=== PATIENT | female | born 1970 | race Caucasian/White ===

== ENCOUNTER 2016-04-28 18:55 | Emergency (ER) | payer OTHER ==
[2016-04-28 19:10] VITALS: BP 161/100; PULSE 119; TEMP 98.1; BMI 29.2
--- NOTE | 2016-04-28 20:18 | PDOC ---
History of Present Illness - General Chief Complaint: Pain, Acute Stated Complaint: HEADACHE/BACK PAIN Time Seen by Provider: 04/28/16 20:05 History Source: Patient, Old Records Exam Limitations: No Limitations - History of Present Illness Initial Comments: 04/28/16 20:12 45 Y F HX crhonic pain pte c/o 2 day hx of lt sided low back pain radiated to lt lef. has not called her pcp. sts she is allergic to pretty much everything but narcotics. in ed in [place]. sts symptoms have improved. no incontinence or weakness. Past History - Past Medical History Allergies/Adverse Reactions: Allergies Allergy/AdvReac Type Severity Reaction Status Date / Time levofloxacin [From Levaquin] Allergy Severe Swelling Verified 04/28/16 18:57 metaxalone [From Skelaxin] Allergy Severe Swelling Verified 04/28/16 18:57 metoclopramide HCl Allergy Severe Hives Verified 04/28/16 18:57 [From Reglan] Penicillins Allergy Severe Hives Verified 04/28/16 18:57 phenytoin sodium Allergy Severe Rash Verified 04/28/16 18:57 [From Dilantin] phenytoin sodium extended Allergy Severe Rash Verified 04/28/16 18:57 [From Dilantin] ciprofloxacin Allergy Intermediate Itching Verified 04/28/16 18:57 venlafaxine HCl Allergy Mild Rash Verified 04/28/16 18:57 [From Effexor] ketorolac tromethamine Allergy Hives Verified 04/28/16 18:57 [From Toradol] olanzapine [From Zyprexa] Allergy Verified 04/28/16 18:57 sumatriptan [From Imitrex] Allergy Hives Verified 04/28/16 18:57 sumatriptan succinate Allergy Hives Verified 04/28/16 18:57 [From Imitrex] tramadol Allergy ITCHING Verified 04/28/16 18:57 SHAKING Home Medications: Ambulatory Orders Atenolol [Tenormin -] 25 mg PO BID 02/25/15 Divalproex [Depakote -] 500 mg PO TID 02/25/15 Gabapentin [Neurontin] 600 mg PO TID 02/25/15 Diazepam [Valium -] 5 mg PO TID 03/27/15 Docusate Sodium [Colace -] 100 mg PO TID 03/27/15 Hydromorphone [Dilaudid -] 4 mg PO Q4H PRN 03/27/15 Zolpidem Tartrate [Ambien Cr] 12.5 mg PO PRN PRN 07/03/15 Anemia: No Asthma: No Cancer: No Cardiac Disorders: No CVA: No COPD: No CHF: No Dementia: No Diabetes: No GI Disorders: Yes (colitis, PANCREATITIS.) Disorders: Yes (PAST H/O INC OF URINE HAD A BLADDER LIFT) HTN: Yes Hypercholesterolemia: No Liver Disease: No Psychiatric Problems: Yes (anxiety, panic disorder) Suicide Attempt (Hx): No Seizures: Yes (BRAIN ANEURYSM, INSOMNIA, PTSD) Thyroid Disease: Yes (HYPOTHYROIDISM) - Surgical History Abdominal Surgery: Yes (HYSTERECTOMY BUT HAS BOTH OVARIES) Appendectomy: Yes Cardiac Surgery: No Cholecystectomy: Yes GI Surgery: No Lung Surgery: No Neurologic Surgery: Yes (ANEURYSM CLIP) Orthopedic Surgery: (left knee sx from cysts torn) - Immunization History Td Vaccination: Yes TDAP Vaccination: Yes Immunization Up to Date: Yes - Psycho/Social/Smoking Cessation Hx Anxiety: Yes Suicidal Ideation: No Smoking Status: No Smoking History: Never smoked Years of Tobacco Use: 0 Have you smoked in the past 12 months: No Number of Cigarettes Smoked Daily: 0 Cigars Per Day: 0 Information on smoking cessation initiated: No 'Breaking Loose' booklet given: 02/27/14 Hx Alcohol Use: No Drug/Substance Use Hx: No Substance Use Type: None Hx Substance Use Treatment: No Trauma Specific PMHX - Complaint Specific PMHX Arthritis: Yes Back Injury: No Neck Injury: Yes Hx Sacro Iliac Joint Dysfunction: No Review of Systems - Review of Systems Able to Perform ROS?: Yes Is the patient limited Cape Verdean proficient: No Constitutional: No: Symptoms Reported HEENTM: No: Symptoms Reported Respiratory: No: Symptoms reported Cardiac (ROS): No: Symptoms Reported ABD/GI: No: Symptoms Reported Musculoskeletal: Yes: Symptoms Reported, See HPI, Back Pain Integumentary: No: Symptoms Reported Neurological: Yes: Symptoms reported, See HPI, Tingling, Weakness All Other Systems: Reviewed and Negative *Physical Exam - Vital Signs Last Vital Signs Temp Pulse Resp BP Pulse Ox 98.1 F 119 H 18 161/100 100 04/28/16 18:59 04/28/16 18:59 04/28/16 18:59 04/28/16 18:59 04/28/16 18:59 - Physical Exam General Appearance: Yes: Nourished, Appropriately Dressed. No: Apparent Distress HEENT: positive: Normal ENT Inspection Neck: positive: Supple. negative: Tender Respiratory/Chest: positive: Lungs Clear. negative: Respiratory Distress Cardiovascular: positive: Regular Rhythm, Regular Rate, Tachycardia Gastrointestinal/Abdominal: positive: Soft. negative: Tender Musculoskeletal: positive: Normal Inspection, Other (lt SIJ tenderness). negative: Vertebral Tenderness Extremity: positive: Normal Capillary Refill, Normal Inspection, Normal Range of Motion, Other (strength 5/5 x4) Neurologic: positive: transport nurse II-XII NML intact, Fully Oriented, Alert, Normal Mood/ Affect, Normal Response, Motor Strength 5/5. negative: Sensory Deficit *DC/Admit/Observation/Transfer Diagnosis at time of Disposition: Lumbar radiculopathy - Discharge Dispostion Disposition: HOME Condition at time of disposition: Stable - Referrals Referrals: Rayna Lundy MD [Primary Care Provider] - Call tomorrow - Patient Instructions Additional Instructions: TAKE MEDICATIONS PRESCRIBED TYLENOL, 1 GM 4 TIMES A DAY FLEXERIL, 10 MG 3 TIMES A DAY AVOID PROLONG PERIODS OF TIME IN SAME POSITION DO NOT LIFT WEIGHTS ICE OR HEAT TO AREA (WHATEVER WORKS BETTER FOR YOU) CALL YOUR DOCTOR TO START PHYSICAL THERAPY QASIM LAY DOWN ON EITHER SIDE, KNEES BENT, STRAIGHT SPINE, CUSHION BETWEEN YoUR KNEES RETURN IF WORSENING PAIN OR NEW SYMPTOMS LIKE INABILITY TO URINATE OR HOLD YOUR URINE
== END 2016-04-28 20:32 | disposition home or self-care (01) ==
LOC: JER 18:55
DX: M54.16 Radiculopathy, lumbar region (principal); I10 Essential (primary) hypertension; E03.9 Hypothyroidism, unspecified; F41.0 Panic disorder [episodic paroxysmal anxiety]; F43.10 Post-traumatic stress disorder, unspecified; G47.09 Other insomnia; Z86.69 Personal history of other diseases of the nervous system and sense organs; Z87.19 Personal history of other diseases of the digestive system
CPT/HCPCS: 99283-25

== ENCOUNTER 2016-06-02 18:33 | Emergency (ER) | payer OTHER ==
--- NOTE | 2016-06-02 18:52 | PDOC ---
Rapid Medical Evaluation Chief Complaint: Injury Medical Evaluation: Allergies Allergy/AdvReac Type Severity Reaction Status Date / Time levofloxacin [From Levaquin] Allergy Severe Swelling Verified 06/02/16 18:51 metaxalone [From Skelaxin] Allergy Severe Swelling Verified 06/02/16 18:51 metoclopramide HCl Allergy Severe Hives Verified 06/02/16 18:51 [From Reglan] Penicillins Allergy Severe Hives Verified 06/02/16 18:51 phenytoin sodium Allergy Severe Rash Verified 06/02/16 18:51 [From Dilantin] phenytoin sodium extended Allergy Severe Rash Verified 06/02/16 18:51 [From Dilantin] ciprofloxacin Allergy Intermediate Itching Verified 06/02/16 18:51 venlafaxine HCl Allergy Mild Rash Verified 06/02/16 18:51 [From Effexor] ketorolac tromethamine Allergy Hives Verified 06/02/16 18:51 [From Toradol] olanzapine [From Zyprexa] Allergy Verified 06/02/16 18:51 sumatriptan [From Imitrex] Allergy Hives Verified 06/02/16 18:51 sumatriptan succinate Allergy Hives Verified 06/02/16 18:51 [From Imitrex] tramadol Allergy ITCHING Verified 06/02/16 18:51 SHAKING 06/02/16 18:51 45 yo F presents to the ER c/o TROY, back pain after a slip and fall. Pt reports she hit her head on the floor at 1500hrs today.
[2016-06-02 18:56] VITALS: BP 147/86; PULSE 83; TEMP 98; BMI 29.5
--- NOTE | 2016-06-02 20:52 | PDOC ---
History of Present Illness - General Chief Complaint: Injury Stated Complaint: FALL/BACK PAIN/RT SIDE FACE INJURY Time Seen by Provider: 06/02/16 19:50 History Source: Patient Exam Limitations: No Limitations - History of Present Illness Initial Comments: 06/02/16 20:47 45yo Female patient with PmHx: Anxiety, Fibromyalgia, GERD, HTN, Hysterectomy, Neck and back surgery, Brain Aneurysm, and current on pain management getting 4mg Dilaudid every 6 hours, presents to ED c/o fall w/ head injury and +LOC. Patient states while changing her shower curtains, she did not know the tub was wet, she slipped- fell and hit her head. Patient reports + LOC. "My son found me." Patient was reportedly dropped off to ED by her . She also c/o Rt shoulder pain, neck pain, and lower back pain with associated dizziness. Denies any other complaints at this time. Occurred: reports: just prior to arrival Severity: reports: moderate Pain Location: reports: back, head, neck, upper extremity Method of Injury: Yes: fall Modifying Factors: improves with: pain medication Loss of Consciousness: unsure Associated Symptoms (Fall): dizziness Past History - Travel Traveled outside of the country in the last 30 days: No Close contact w/someone who was outside of country & ill: No - Past Medical History Allergies/Adverse Reactions: Allergies Allergy/AdvReac Type Severity Reaction Status Date / Time levofloxacin [From Levaquin] Allergy Severe Swelling Verified 06/02/16 18:51 metaxalone [From Skelaxin] Allergy Severe Swelling Verified 06/02/16 18:51 metoclopramide HCl Allergy Severe Hives Verified 06/02/16 18:51 [From Reglan] Penicillins Allergy Severe Hives Verified 06/02/16 18:51 phenytoin sodium Allergy Severe Rash Verified 06/02/16 18:51 [From Dilantin] phenytoin sodium extended Allergy Severe Rash Verified 06/02/16 18:51 [From Dilantin] ciprofloxacin Allergy Intermediate Itching Verified 06/02/16 18:51 venlafaxine HCl Allergy Mild Rash Verified 06/02/16 18:51 [From Effexor] ketorolac tromethamine Allergy Hives Verified 06/02/16 18:51 [From Toradol] olanzapine [From Zyprexa] Allergy Verified 06/02/16 18:51 sumatriptan [From Imitrex] Allergy Hives Verified 06/02/16 18:51 sumatriptan succinate Allergy Hives Verified 06/02/16 18:51 [From Imitrex] tramadol Allergy ITCHING Verified 06/02/16 18:51 SHAKING Home Medications: Ambulatory Orders Atenolol [Tenormin -] 25 mg PO BID 02/25/15 Divalproex [Depakote -] 500 mg PO TID 02/25/15 Gabapentin [Neurontin] 600 mg PO TID 02/25/15 Diazepam [Valium -] 5 mg PO TID 03/27/15 Docusate Sodium [Colace -] 100 mg PO TID 03/27/15 Hydromorphone [Dilaudid -] 4 mg PO Q4H PRN 03/27/15 Zolpidem Tartrate [Ambien Cr] 12.5 mg PO PRN PRN 07/03/15 Cyclobenzaprine HCl [Flexeril -] 10 mg PO TID #10 tablet 04/28/16 Methocarbamol [Robaxin -] 500 mg PO TID PRN #21 tablet 06/03/16 Anemia: No Asthma: No Cancer: No Cardiac Disorders: No CVA: No COPD: No CHF: No Dementia: No Diabetes: No GI Disorders: Yes (colitis, PANCREATITIS.) Disorders: Yes (PAST H/O INC OF URINE HAD A BLADDER LIFT) HTN: Yes Hypercholesterolemia: No Liver Disease: No Psychiatric Problems: Yes (anxiety, panic disorder) Suicide Attempt (Hx): No Seizures: Yes (BRAIN ANEURYSM, INSOMNIA, PTSD) Thyroid Disease: Yes (HYPOTHYROIDISM) - Surgical History Abdominal Surgery: Yes (HYSTERECTOMY BUT HAS BOTH OVARIES) Appendectomy: Yes Cardiac Surgery: No Cholecystectomy: Yes GI Surgery: No Lung Surgery: No Neurologic Surgery: Yes (ANEURYSM CLIP) Orthopedic Surgery: (left knee sx from cysts torn) - Immunization History Td Vaccination: Yes TDAP Vaccination: Yes Immunization Up to Date: Yes - Psycho/Social/Smoking Cessation Hx Anxiety: Yes Suicidal Ideation: No Smoking Status: No Smoking History: Never smoked Years of Tobacco Use: 0 Have you smoked in the past 12 months: No Number of Cigarettes Smoked Daily: 0 Cigars Per Day: 0 Information on smoking cessation initiated: No 'Breaking Loose' booklet given: 11/24/14 Hx Alcohol Use: No Drug/Substance Use Hx: No Substance Use Type: None Hx Substance Use Treatment: No Trauma Specific PMHX - Complaint Specific PMHX Arthritis: Yes Back Injury: No Neck Injury: Yes Hx Sacro Iliac Joint Dysfunction: No Review of Systems - Review of Systems Able to Perform ROS?: Yes Is the patient limited Armenian proficient: No Musculoskeletal: Yes: Back Pain, Joint Pain, Neck Pain, Other (Head Injury) All Other Systems: Reviewed and Negative *Physical Exam - Vital Signs Last Vital Signs Temp Pulse Resp BP Pulse Ox 98.0 F 83 18 147/86 100 06/02/16 18:51 06/02/16 18:51 06/02/16 18:51 06/02/16 18:51 06/02/16 18:51 - Physical Exam General Appearance: Yes: Nourished, Appropriately Dressed, Mild Distress. No: Apparent Distress, Moderate Distress, Severe Distress HEENT: positive: EOMI, SHELLIE, Normal ENT Inspection, Normal Voice, Symmetrical, TMs Normal, Pharynx Normal. negative: Pharyngeal Erythema, Tonsillar Exudate, Tonsillar Erythema, Nasal Congestion, Rhinorrhea Neck: positive: Trachea midline, Supple. negative: Tender, Normal Thyroid, Rigid, Decreased range of motion, Stridor, Lymphadenopathy (R), Lymphadenopathy (L) Respiratory/Chest: positive: Lungs Clear, Normal Breath Sounds. negative: Chest Tender, Respiratory Distress, Accessory Muscle Use, Labored Respiration, Rapid RR, Rhonchi, Stridor, Wheezing Cardiovascular: positive: Regular Rhythm, Regular Rate. negative: Edema, JVD, Murmur Gastrointestinal/Abdominal: positive: Normal Bowel Sounds, Soft, Distended. negative: Guarding, Rebound, Tenderness Musculoskeletal: positive: Normal Inspection, Vertebral Tenderness (Right lateral cervical spine tenderness.). negative: CVA Tenderness, Muscle Spasm Extremity: positive: Normal Capillary Refill, Normal Inspection, Normal Range of Motion Integumentary: positive: Normal Color, Dry, Warm. negative: Rash, Swelling Neurologic: positive: machine lacer II-XII NML intact, Fully Oriented, Alert, Normal Mood/ Affect, Normal Response, Motor Strength 5/5 ED Treatment Course - RADIOLOGY Radiology Studies Ordered: Category Date Time Status CERVICAL SPINE CT W/O CONTR [CT] Stat CT Scan 06/02/16 20:[address] WITHOUT CONTRAST [CT] Stat CT Scan 06/02/16 20:18 Ordered SHOULDER-RIGHT [RAD] Stat Radiology 06/02/16 20:18 Ordered SPINE-LUMBAR SACRAL [RAD] Stat Radiology 06/02/16 20:18 Ordered *DC/Admit/Observation/Transfer Diagnosis at time of Disposition: Musculoskeletal pain - Discharge Dispostion Disposition: HOME Condition at time of disposition: Improved Admit: No - Prescriptions Prescriptions: Methocarbamol [Robaxin -] 500 mg PO TID PRN #21 tablet PRN Reason: MUSCULOSKELETAL PAIN - Patient Instructions Printed Discharge Instructions: DI for Musculoskeletal Pain, DI for Closed Head Injury Additional Instructions: FOLLOW UP WITH YOUR PRIMARY CARE PROVIDER THIS WEEK. CALL TO SCHEDULE APPOINTMENT. CONTINUE YOUR CURRENT PAIN MEDICATIONS PER PAIN MANAGEMENT. TAKE MEDICATIONS PRESCRIBED. I HAVE ADDED A MUSCLE RELAXER TO HELP WITH YOUR PAIN. Print Language: PAKISTANI
[2016-06-02] MEDS ORDERED: HYDROmorphone HCL 2 MG TABLET PO ONE (23:17)
[2016-06-02] MEDS ORDERED: HYDROmorphone HCL 2 MG TABLET ONE (23:25)
== END 2016-06-03 00:48 | disposition home or self-care (01) ==
LOC: JER 18:33
DX: S09.8XXA Other specified injuries of head, initial encounter (principal); S49.91XA Unspecified injury of right shoulder and upper arm, initial encounter; W18.2XXA Fall in (into) shower or empty bathtub, initial encounter; Y93.E9 Activity, other interior property and clothing maintenance; Y92.031 Bathroom in apartment as the place of occurrence of the external cause; Y99.8 Other external cause status; I10 Essential (primary) hypertension; M79.7 Fibromyalgia; F41.9 Anxiety disorder, unspecified; K21.9 Gastro-esophageal reflux disease without esophagitis
CPT/HCPCS: 70450-TC; 72100-TC; 72125-TC; 73030-TC-RT; 99283-25

== ENCOUNTER 2016-10-02 20:38 | Emergency (ER) | payer OTHER ==
[2016-10-02 20:53] VITALS: BP 151/128; PULSE 110; TEMP 98.3
--- NOTE | 2016-10-02 22:22 | PDOC ---
History of Present Illness - General Chief Complaint: Pain, Acute Stated Complaint: LEFT LEG PAIN/ PAIN Time Seen by Provider: 10/02/16 21:00 History Source: Patient - History of Present Illness Initial Comments: 10/03/16 01:07 45-year-old female presents to the emergency department complaining of pain to the back of her left knee 2 weeks. Patient states she was seen by her orthopedic surgeon who informed her that she did not have any pain behind her knee. Patient denies any headache, dizziness, lightheadedness, chest pain, shortness of breath, abdominal pains, extremity numbness or tingling sensation, extremity swelling or pain anywhere else besides the back of her left knee. Past History - Past Medical History Allergies/Adverse Reactions: Allergies Allergy/AdvReac Type Severity Reaction Status Date / Time levofloxacin [From Levaquin] Allergy Severe Swelling Verified 10/02/16 20:48 metaxalone [From Skelaxin] Allergy Severe Swelling Verified 10/02/16 20:48 metoclopramide HCl Allergy Severe Hives Verified 10/02/16 20:48 [From Reglan] Penicillins Allergy Severe Hives Verified 10/02/16 20:48 phenytoin sodium Allergy Severe Rash Verified 10/02/16 20:48 [From Dilantin] phenytoin sodium extended Allergy Severe Rash Verified 10/02/16 20:48 [From Dilantin] ciprofloxacin Allergy Intermediate Itching Verified 10/02/16 20:48 venlafaxine HCl Allergy Mild Rash Verified 10/02/16 20:48 [From Effexor] ketorolac tromethamine Allergy Hives Verified 10/02/16 20:48 [From Toradol] olanzapine [From Zyprexa] Allergy Verified 10/02/16 20:48 sumatriptan [From Imitrex] Allergy Hives Verified 10/02/16 20:48 sumatriptan succinate Allergy Hives Verified 10/02/16 20:48 [From Imitrex] tramadol Allergy ITCHING Verified 10/02/16 20:48 SHAKING Home Medications: Ambulatory Orders Atenolol [Tenormin -] 25 mg PO BID 02/25/15 Divalproex [Depakote -] 500 mg PO TID 02/25/15 Gabapentin [Neurontin] 600 mg PO TID 02/25/15 Diazepam [Valium -] 5 mg PO TID 03/27/15 Docusate Sodium [Colace -] 100 mg PO TID 03/27/15 Hydromorphone [Dilaudid -] 4 mg PO Q4H PRN 03/27/15 Zolpidem Tartrate [Ambien Cr] 12.5 mg PO PRN PRN 07/03/15 Cyclobenzaprine HCl [Flexeril -] 10 mg PO TID #10 tablet 04/28/16 Methocarbamol [Robaxin -] 500 mg PO TID PRN #21 tablet 06/03/16 Anemia: No Asthma: No Cancer: No Cardiac Disorders: No CVA: No COPD: No CHF: No Dementia: No Diabetes: No GI Disorders: Yes (colitis, PANCREATITIS.) Disorders: Yes (PAST H/O INC OF URINE HAD A BLADDER LIFT) HTN: Yes Hypercholesterolemia: No Liver Disease: No Psychiatric Problems: Yes (anxiety, panic disorder) Suicide Attempt (Hx): No Seizures: Yes (BRAIN ANEURYSM, INSOMNIA, PTSD) Thyroid Disease: Yes (HYPOTHYROIDISM) - Surgical History Abdominal Surgery: Yes (HYSTERECTOMY BUT HAS BOTH OVARIES) Appendectomy: Yes Cardiac Surgery: No Cholecystectomy: Yes GI Surgery: No Lung Surgery: No Neurologic Surgery: Yes (ANEURYSM CLIP) Orthopedic Surgery: (left knee sx from cysts torn) - Immunization History Td Vaccination: Yes TDAP Vaccination: Yes Immunization Up to Date: Yes - Psycho/Social/Smoking Cessation Hx Anxiety: Yes Suicidal Ideation: No Smoking Status: No Smoking History: Never smoked Years of Tobacco Use: 0 Have you smoked in the past 12 months: No Number of Cigarettes Smoked Daily: 0 Cigars Per Day: 0 Information on smoking cessation initiated: No 'Breaking Loose' booklet given: 02/27/14 Hx Alcohol Use: No Drug/Substance Use Hx: No Substance Use Type: None Hx Substance Use Treatment: No Review of Systems - Review of Systems Able to Perform ROS?: Yes Comments:: 10/03/16 01:08 CONSTITUTIONAL: Absent: fever, chills, diaphoresis, generalized weakness, malaise, loss of appetite HEENT: Absent: rhinorrhea, nasal congestion, throat pain, throat swelling, difficulty swallowing, mouth swelling, ear pain, eye pain, visual Changes CARDIOVASCULAR: Absent: chest pain, loss of consciousness, palpitations, irregular heart rate, peripheral edema RESPIRATORY: Absent: cough, shortness of breath, dyspnea with exertion, orthopnea, wheezing, stridor, hemoptysis GASTROINTESTINAL: Absent: abdominal pain, abdominal distension, nausea, vomiting, diarrhea, constipation, melena, hematochezia GENITOURINARY: Absent: dysuria, frequency, urgency, hesitancy, hematuria, flank pain, genital pain MUSCULOSKELETAL: +pain to posterior left knee Absent: myalgia, arthralgia, joint swelling SKIN: Absent: rash, itching, pallor HEMATOLOGIC/IMMUNOLOGIC: Absent: easy bleeding, easy bruising, lymphadenopathy, frequent infections ENDOCRINE: Absent: unexplained weight gain, unexplained weight loss, heat intolerance, cold intolerance NEUROLOGIC: Absent: headache, focal weakness or paresthesias, dizziness, unsteady gait, seizure, mental status changes, bladder or bowel incontinence PSYCHIATRIC: Absent: anxiety, depression, suicidal or homicidal ideation, hallucinations. Is the patient limited Taiwanese proficient: No *Physical Exam - Vital Signs Last Vital Signs Temp Pulse Resp BP Pulse Ox 98.3 F 110 H 16 151/128 97 10/02/16 20:49 10/02/16 20:49 10/02/16 20:49 10/02/16 20:49 10/02/16 20:49 - Physical Exam Comments: 10/03/16 01:08 GENERAL: Well developed, well nourished. Awake and alert. No acute distress. HEENT: Normocephalic, atraumatic. PERRLA, EOMI. No conjunctival pallor. Sclera are non- icteric. Moist mucous membranes. Oropharynx is clear. NECK: Supple. Full ROM. No JVD. Carotid pulses 2+ and symmetric, without bruits. No thyromegaly. No lymphadenopathy. CARDIOVASCULAR: Regular rate and rhythm. No murmurs, rubs, or gallops. Distal pulses are 2+ and symmetric. PULMONARY: No evidence of respiratory distress. Lungs clear to auscultation bilaterally. No wheezing, rales or rhonchi. ABDOMINAL: Soft. Non-tender. Non-distended. No rebound or guarding. No organomegaly. Normoactive bowel sounds. MUSCULOSKELETAL Normal range of motion at all joints. No bony deformities or tenderness. No CVA tenderness. EXTREMITIES: No cyanosis. No clubbing. No edema. No calf tenderness. SKIN: Warm and dry. Normal capillary refill. No rashes. No jaundice. NEUROLOGICAL: Alert, awake, appropriate. Cranial nerves 2-12 intact. No deficits to light touch and temperature in face, upper extremities and lower extremities. No motor deficits in the in face, upper extremities and lower extremities. Normoreflexic in the upper and lower extremities. Normal speech. Toes are down- going bilaterally. Gait is normal without ataxia. PSYCHIATRIC: Cooperative. Good eye contact. Appropriate mood and affect. *DC/Admit/Observation/Transfer Diagnosis at time of Disposition: Bakers cyst Qualifiers: Laterality: left Qualified Code(s): M71.22 - Synovial cyst of popliteal space [ Mckenzie], left knee - Discharge Dispostion Disposition: HOME Condition at time of disposition: Stable Admit: No - Referrals Referrals: Rayna Lundy MD [Primary Care Provider] - - Patient Instructions Printed Discharge Instructions: Bakers Cyst Additional Instructions: Return to the ER for severe/persistent/worsening symptoms Progress Note - Progress Note Progress Note: No evidence for DVT left lower extremity. 2.8 x 2.5 x 1.2 cm complex popliteal cyst
--- NOTE | 2016-10-02 23:13 | PDOC ---
*Physical Exam - Vital Signs Last Vital Signs Temp Pulse Resp BP Pulse Ox 98.3 F 110 H 16 151/128 97 10/02/16 20:49 10/02/16 20:49 10/02/16 20:49 10/02/16 20:49 10/02/16 20:49 Medical Decision Making - Medical Decision Making 10/02/16 23:13 agree with care from KEO Temple
== END 2016-10-03 01:15 | disposition home or self-care (01) ==
LOC: JER 20:38
DX: M71.22 Synovial cyst of popliteal space [Baker], left knee (principal); I10 Essential (primary) hypertension; F41.8 Other specified anxiety disorders; F41.0 Panic disorder [episodic paroxysmal anxiety]; G47.00 Insomnia, unspecified; F43.10 Post-traumatic stress disorder, unspecified
CPT/HCPCS: 93971-TC; 99282-25

== ENCOUNTER 2017-12-22 19:39 | Emergency (ER) | payer OTHER ==
--- NOTE | 2017-12-22 19:53 | PDOC ---
Rapid Medical Evaluation Chief Complaint: Injury Time Seen by Provider: 12/22/17 19:51 Medical Evaluation: Allergies Allergy/AdvReac Type Severity Reaction Status Date / Time levofloxacin [From Levaquin] Allergy Severe Swelling Verified 10/02/16 20:48 metaxalone [From Skelaxin] Allergy Severe Swelling Verified 10/02/16 20:48 metoclopramide HCl Allergy Severe Hives Verified 10/02/16 20:48 [From Reglan] Penicillins Allergy Severe Hives Verified 10/02/16 20:48 phenytoin sodium Allergy Severe Rash Verified 10/02/16 20:48 [From Dilantin] phenytoin sodium extended Allergy Severe Rash Verified 10/02/16 20:48 [From Dilantin] ciprofloxacin Allergy Intermediate Itching Verified 10/02/16 20:48 venlafaxine HCl Allergy Mild Rash Verified 10/02/16 20:48 [From Effexor] ketorolac tromethamine Allergy Hives Verified 10/02/16 20:48 [From Toradol] olanzapine [From Zyprexa] Allergy Verified 10/02/16 20:48 sumatriptan [From Imitrex] Allergy Hives Verified 10/02/16 20:48 sumatriptan succinate Allergy Hives Verified 10/02/16 20:48 [From Imitrex] tramadol Allergy ITCHING Verified 10/02/16 20:48 SHAKING 12/22/17 19:51 I have performed a brief in person evaluation of this patient. The patient presents with a CC of: Left leg pain HPI: Pt is a 47 YO female who states that she fell at home a week ago and now has left leg pain. PE: Skin: Ecchymosis to left LE Heart: RRR Lungs: Clear MS: Pt has pain and edema to left knee, left tib/fib, ankle and foot. Neuro: Appropriate affect Psych: appropriate affect I have ordered: xrays The patient will proceed to the ED for further evaluation. Discharge Disposition - Diagnosis Leg pain Qualifiers: Laterality: left Qualified Code(s): M79.605 - Pain in left leg - Referrals Referrals: Rayna Lundy MD [Primary Care Provider] - - Patient Instructions - Post Discharge Activity
--- NOTE | 2017-12-22 21:18 | PDOC ---
Attending Attestation - Resident Resident Name: Gilberto Miner - ED Attending Attestation I have performed the following: I have examined & evaluated the patient, The case was reviewed & discussed with the resident, I agree w/resident's findings & plan, Exceptions are as noted - HPI HPI: 12/22/17 21:15 47 yo female states she fell in her house one week ago. She states she slipped on a wet floor and injured her leg -she has been ambulating on her bruised left leg but it has become very ecchymotic and swollen from knee to her toes. -she denies the use of blood thinners and cannot take nsaids because of a h/o brain bleed.aneurysm 12/22/17 21:18 - Physicial Exam PE: 12/22/17 21:19 47 yo female p-/w extensively bruised left leg head ncat eyes alec eomi neck no cervical vertebral tenderness lungs cta b/l cvs [id number] abd nontender left leg with extensive bruising good DT and PT pulses neuro axox3,ambulating 12/23/17 00:08 - Medical Decision Making 12/23/17 00:09 duplex doppler is NEGATIVE for dvt
--- NOTE | 2017-12-22 21:55 | PDOC ---
History of Present Illness - General History Source: Patient Exam Limitations: No Limitations - History of Present Illness Initial Comments: 12/22/17 21:50 The patient is a 47F with a PMH of fibromyalgia and intracranial aneurysm who presents to the ER with complaints of L leg pain. The patient states that she slipped on a puddle of water in her bathroom. She states that she hit her leg "on everything". She denies any other symptoms or pain in any other areas. She admits to decreased ROM and swelling with bruising. <Gilberto Miner - Last Filed: 12/22/17 21:56> <Rhonda Lu - Last Filed: 12/23/17 00:17> - General Chief Complaint: Injury Stated Complaint: FALL LEFT FOOT PAIN Time Seen by Provider: 12/22/17 19:51 Past History - Past Medical History Anemia: No Asthma: No Cancer: No Cardiac Disorders: No CVA: No COPD: No CHF: No Dementia: No Diabetes: No GI Disorders: Yes (colitis, PANCREATITIS.) Disorders: Yes (PAST H/O INC OF URINE HAD A BLADDER LIFT) HTN: Yes Hypercholesterolemia: No Liver Disease: No Psychiatric Problems: Yes (anxiety, panic disorder) Seizures: Yes (BRAIN ANEURYSM, INSOMNIA, PTSD) Thyroid Disease: Yes (HYPOTHYROIDISM) Other medical history: fibromyalgia - Surgical History Abdominal Surgery: Yes (HYSTERECTOMY BUT HAS BOTH OVARIES) Appendectomy: Yes Cardiac Surgery: No Cholecystectomy: Yes GI Surgery: No Lung Surgery: No Neurologic Surgery: Yes (ANEURYSM CLIP) Orthopedic Surgery: (left knee sx from cysts torn) - Immunization History Td Vaccination: Yes TDAP Vaccination: Yes Immunization Up to Date: Yes - Suicide/Smoking/Psychosocial Hx Smoking Status: No Smoking History: Never smoked Years of Tobacco Use: 0 Have you smoked in the past 12 months: No Number of Cigarettes Smoked Daily: 0 Cigars Per Day: 0 Information on smoking cessation initiated: No 'Breaking Loose' booklet given: 02/27/14 Hx Alcohol Use: No Drug/Substance Use Hx: No Substance Use Type: None Hx Substance Use Treatment: No <Gilberto Miner - Last Filed: 12/22/17 21:56> <Rhonda Lu - Last Filed: 12/23/17 00:17> - Past Medical History Allergies/Adverse Reactions: Allergies Allergy/AdvReac Type Severity Reaction Status Date / Time levofloxacin [From Levaquin] Allergy Severe Swelling Verified 12/22/17 19:56 metaxalone [From Skelaxin] Allergy Severe Swelling Verified 12/22/17 19:56 metoclopramide HCl Allergy Severe Hives Verified 12/22/17 19:56 [From Reglan] Penicillins Allergy Severe Hives Verified 12/22/17 19:56 phenytoin sodium Allergy Severe Rash Verified 12/22/17 19:56 [From Dilantin] phenytoin sodium extended Allergy Severe Rash Verified 12/22/17 19:56 [From Dilantin] ciprofloxacin Allergy Intermediate Itching Verified 12/22/17 19:56 venlafaxine HCl Allergy Mild Rash Verified 12/22/17 19:56 [From Effexor] ketorolac tromethamine Allergy Hives Verified 12/22/17 19:56 [From Toradol] olanzapine [From Zyprexa] Allergy Verified 12/22/17 19:56 sumatriptan [From Imitrex] Allergy Hives Verified 12/22/17 19:56 sumatriptan succinate Allergy Hives Verified 12/22/17 19:56 [From Imitrex] tramadol Allergy ITCHING Verified 12/22/17 19:56 SHAKING Home Medications: Ambulatory Orders Atenolol [Tenormin -] 25 mg PO BID 02/25/15 Divalproex [Depakote -] 500 mg PO TID 02/25/15 Gabapentin [Neurontin] 600 mg PO TID 02/25/15 Diazepam [Valium -] 5 mg PO TID 03/27/15 Docusate Sodium [Colace -] 100 mg PO TID 03/27/15 HYDROmorphone [Dilaudid -] 4 mg PO Q4H PRN 03/27/15 Zolpidem Tartrate [Ambien Cr] 12.5 mg PO PRN PRN 07/03/15 Cyclobenzaprine HCl [Flexeril -] 10 mg PO TID #10 tablet 04/28/16 Methocarbamol [Robaxin -] 500 mg PO TID PRN #21 tablet 06/03/16 Review of Systems - Review of Systems Able to Perform ROS?: Yes Is the patient limited Ukrainian proficient: No Constitutional: No: Chills, Fever HEENTM: No: Eye Pain, Blurred Vision Respiratory: No: Shortness of Breath, SOB at Rest, Productive cough Cardiac (ROS): No: Chest Pain, Syncope Musculoskeletal: Yes: Other (Pain in L leg) Integumentary: Yes: Bruising, Erythema <Gilberto Miner - Last Filed: 12/22/17 21:56> *Physical Exam - Vital Signs Last Vital Signs Temp Pulse Resp BP Pulse Ox 98.8 F 119 H 17 179/98 97 12/22/17 19:52 12/22/17 19:52 12/22/17 19:52 12/22/17 19:52 12/22/17 19:52 - Physical Exam Comments: 12/22/17 21:53 GENERAL: Well developed, well nourished. Awake and alert. No acute distress. HEENT: Normocephalic, atraumatic. Hearing grossly normal. Moist mucous membranes. PERRLA, EOMI. No conjunctival pallor. Sclera are non-icteric. NECK: Supple. Full ROM. No JVD. GENITOURINARY: No CVA tenderness bilaterally. MUSCULOSKELETAL: Decreased ROM in L leg with TTP over entire leg. EXTREMITIES: L extremity erythema with 3+ edema, with diffuse echymosis and limited ROM with TTP throughout leg. . SKIN: Warm and dry. Normal capillary refill. No rashes. No jaundice. NEUROLOGICAL: Alert, awake, appropriate. Cranial nerves 2-12 grossly intact. Normal speech. PSYCHIATRIC: Cooperative. Good eye contact. Appropriate mood and affect. <Gilberto Miner - Last Filed: 12/22/17 21:56> - Vital Signs Last Vital Signs Temp Pulse Resp BP Pulse Ox 98.8 F 119 H 17 179/98 97 12/22/17 19:52 12/22/17 19:52 12/22/17 19:52 12/22/17 19:52 12/22/17 19:52 <Rhonda Lu - Last Filed: 12/23/17 00:17> ED Treatment Course - RADIOLOGY Radiology Studies Ordered: Category Date Time Status DUPLEX VASCUL US-1 LEG [US] Stat Ultrasound 12/22/17 21:00 Ordered <Gilberto Miner - Last Filed: 12/22/17 21:56> - Medications Given in the ED: ED Medications Discontinued Medications Generic Name Dose Route Start Last Admin Trade Name Freq PRN Reason Stop Dose Admin Hydromorphone HCl 4 mg 12/22/17 21:13 12/22/17 22:00 Dilaudid - PO 12/22/17 21:14 4 mg ONCE ONE Administration <Rhonda Lu - Last Filed: 12/23/17 00:17> Medical Decision Making - Medical Decision Making 12/22/17 21:55 The patient is a 47F with a PMH of fibromyalgia who presents to the ER with complaints of L leg swelling and pain. The leg has dependent edema and preliminary XR's are negative. Due to swelling, will do duplex to r/o clot. Pending US. Giving pt's PO dilaudid for pain control. 12/22/17 21:56 Dr. Lu, attending, will manage pt's care. <Gilberto Miner - Last Filed: 12/22/17 21:56> *DC/Admit/Observation/Transfer <Gilberto Miner - Last Filed: 12/22/17 21:56> <Rhonda Lu - Last Filed: 12/23/17 00:17> Diagnosis at time of Disposition: Leg pain Qualifiers: Laterality: left Qualified Code(s): M79.605 - Pain in left leg Knee injury Qualifiers: Encounter type: initial encounter Laterality: left Qualified Code(s): S89.92XA - Unspecified injury of left lower leg, initial encounter Traumatic ecchymosis of left lower leg Qualifiers: Encounter type: initial encounter Qualified Code(s): S80.12XA - Contusion of left lower leg, initial encounter - Discharge Dispostion Disposition: HOME Condition at time of disposition: Stable - Referrals Referrals: Rayna Lundy MD [Primary Care Provider] - - Patient Instructions Printed Discharge Instructions: DI for Hematoma (Bruise), DI for Blunt Trauma Additional Instructions: please keep your appointment with your orthopedist keep your left leg elevated at heart level while sleeping - Post Discharge Activity
[2017-12-22] MEDS ORDERED: HYDROmorphone HCL 2 MG TABLET ONE (22:00)
[2017-12-23 01:31] VITALS: BP 142/78; PULSE 84; TEMP 98.2
== END 2017-12-23 01:13 | disposition home or self-care (01) ==
LOC: JER 19:39
DX: S80.12XA Contusion of left lower leg, initial encounter (principal); W01.0XXA Fall on same level from slipping, tripping and stumbling without subsequent striking against object, initial encounter; Y93.89 Activity, other specified; Y92.031 Bathroom in apartment as the place of occurrence of the external cause; Y99.8 Other external cause status; I10 Essential (primary) hypertension; F41.8 Other specified anxiety disorders; F43.10 Post-traumatic stress disorder, unspecified; E03.9 Hypothyroidism, unspecified; Z88.1 Allergy status to other antibiotic agents; Z88.0 Allergy status to penicillin; Z88.8 Allergy status to other drugs, medicaments and biological substances
CPT/HCPCS: 73564-TC-LT-FY; 73590-TC-LT-FY; 73610-TC-LT-FY; 73630-TC-LT; 93971-TC; 99283-25

== ENCOUNTER 2019-02-03 17:23 | Emergency (ER) | payer OTHER ==
--- NOTE | 2019-02-03 17:34 | PDOC ---
Rapid Medical Evaluation Chief Complaint: SIRS, Suspected/Possible Time Seen by Provider: 02/03/19 17:31 Medical Evaluation: Allergies Allergy/AdvReac Type Severity Reaction Status Date / Time levofloxacin [From Levaquin] Allergy Severe Swelling Verified 12/22/17 19:56 metaxalone [From Skelaxin] Allergy Severe Swelling Verified 12/22/17 19:56 metoclopramide HCl Allergy Severe Hives Verified 12/22/17 19:56 [From Reglan] Penicillins Allergy Severe Hives Verified 12/22/17 19:56 phenytoin sodium Allergy Severe Rash Verified 12/22/17 19:56 [From Dilantin] phenytoin sodium extended Allergy Severe Rash Verified 12/22/17 19:56 [From Dilantin] ciprofloxacin Allergy Intermediate Itching Verified 12/22/17 19:56 venlafaxine HCl Allergy Mild Rash Verified 12/22/17 19:56 [From Effexor] ketorolac tromethamine Allergy Hives Verified 12/22/17 19:56 [From Toradol] olanzapine [From Zyprexa] Allergy Verified 12/22/17 19:56 sumatriptan [From Imitrex] Allergy Hives Verified 12/22/17 19:56 sumatriptan succinate Allergy Hives Verified 12/22/17 19:56 [From Imitrex] tramadol Allergy ITCHING Verified 12/22/17 19:56 SHAKING 02/03/19 17:31 I have performed a brief in-person evaluation of this patient. The patient presents with a chief complaint of: sent from PCP David for r/o meningitis. pt c/o fever and neck stiffness x 3 days with fever up to 105, rash to b/l legs. hx of cervical radiculopathy with scheduled surgery 03/31. Pertinent physical exam findings: pt tearful, uncomfortable appearing with nuchal ridigity, decreased rotation to neck. tachy to 107. I have ordered the following: sepsis workup The patient will proceed to the ED for further evaluation. Discharge Disposition - Diagnosis Neck pain - Discharge Dispostion Condition at time of disposition: Stable - Referrals - Patient Instructions - Post Discharge Activity
[2019-02-03 17:45] VITALS: TEMP 98.6; BMI 28.3
--- NOTE | 2019-02-03 17:46 | PDOC ---
History of Present Illness - General Chief Complaint: SIRS, Suspected/Possible Stated Complaint: R/O:MENINGITIS PER DOCTOR Time Seen by Provider: 02/03/19 17:31 - History of Present Illness Initial Comments: 02/03/19 17:45 48 year old woman with a PMH of fibromyalgia, chronic migraines, cervical radiculopathy and intracranial aneurysm who presents with 2-3 days of fever ( self report of 104F yesterday), neck pain and hive like rash on the bilateral calfs that come and go. The patient went to Dr. Hernandez her PCP who was concerned about her fever and neck pain. The patient denies any shortness of breath, chest pain, abdominal pain, dysuria, hematuria or any other symptoms. ROS GENERAL/CONSTITUTIONAL: No fever or chills. No weakness. HEAD, EYES, EARS, NOSE AND THROAT: No change in vision. No ear pain or discharge. No sore throat. CARDIOVASCULAR: No chest pain or shortness of breath RESPIRATORY: No cough, wheezing, or hemoptysis. GASTROINTESTINAL: No nausea, vomiting, diarrhea or constipation. GENITOURINARY: No dysuria, frequency, or change in urination. MUSCULOSKELETAL: No joint or muscle swelling or pain. + neck or back pain. SKIN: No rash NEUROLOGIC: + headache, vertigo, loss of consciousness, or change in strength/ sensation. . PE GENERAL: Awake, alert, and fully oriented, in no acute distress HEAD: No signs of trauma, normocephalic, atraumatic EYES: EOMI, sclera anicteric, conjunctiva clear ENT: oropharynx clear without exudates. Moist mucosa NECK: Normal ROM, supple, + bilat cervical lymphadenopathy LUNGS: No distress, speaks full sentences, clear to auscultation bilaterally HEART: Regular rate and rhythm, normal S1 and S2, no murmurs, rubs or gallops, peripheral pulses normal and equal bilaterally. ABDOMEN: Soft, nontender, normoactive bowel sounds. No guarding, no rebound. No masses EXTREMITIES : Normal inspection, Normal range of motion, no edema. No clubbing or cyanosis. NEUROLOGICAL: Cranial nerves II through XII grossly intact. Normal speech, normal gait, no focal sensorimotor deficits SKIN: Warm, Dry, normal turgor, no rashes or lesions noted MDM DDX including but not limited to: influenza consider meningitis viral syndrome radiculopathy ED Course: sepsis w/u unremarkable influenza neg Jovita Duong, PGY2 Emergency Medicine Past History - Past Medical History Allergies/Adverse Reactions: Allergies Allergy/AdvReac Type Severity Reaction Status Date / Time levofloxacin [From Levaquin] Allergy Severe Swelling Verified 12/22/17 19:56 metaxalone [From Skelaxin] Allergy Severe Swelling Verified 12/22/17 19:56 metoclopramide HCl Allergy Severe Hives Verified 12/22/17 19:56 [From Reglan] Penicillins Allergy Severe Hives Verified 12/22/17 19:56 phenytoin sodium Allergy Severe Rash Verified 12/22/17 19:56 [From Dilantin] phenytoin sodium extended Allergy Severe Rash Verified 12/22/17 19:56 [From Dilantin] ciprofloxacin Allergy Intermediate Itching Verified 12/22/17 19:56 venlafaxine HCl Allergy Mild Rash Verified 12/22/17 19:56 [From Effexor] ketorolac tromethamine Allergy Hives Verified 12/22/17 19:56 [From Toradol] olanzapine [From Zyprexa] Allergy Verified 12/22/17 19:56 sumatriptan [From Imitrex] Allergy Hives Verified 12/22/17 19:56 sumatriptan succinate Allergy Hives Verified 12/22/17 19:56 [From Imitrex] tramadol Allergy ITCHING Verified 12/22/17 19:56 SHAKING Home Medications: Ambulatory Orders Atenolol [Tenormin -] 25 mg PO BID 02/25/15 Divalproex [Depakote -] 500 mg PO TID 02/25/15 Gabapentin [Neurontin] 600 mg PO TID 02/25/15 Diazepam [Valium -] 5 mg PO TID 03/27/15 Docusate Sodium [Colace -] 100 mg PO TID 03/27/15 HYDROmorphone [Dilaudid -] 4 mg PO Q4H PRN 03/27/15 Zolpidem Tartrate [Ambien Cr] 12.5 mg PO PRN PRN 07/03/15 Cyclobenzaprine HCl [Flexeril -] 10 mg PO TID #10 tablet 04/28/16 Methocarbamol [Robaxin -] 500 mg PO TID PRN #21 tablet 06/03/16 Nitrofurantoin Monohyd/M-Cryst [Macrobid -] 100 mg PO BID #14 capsule 02/03/19 Anemia: No Asthma: No Cancer: No Cardiac Disorders: No CVA: No COPD: No CHF: No Dementia: No Diabetes: No GI Disorders: Yes (colitis, PANCREATITIS.) Disorders: Yes (PAST H/O INC OF URINE HAD A BLADDER LIFT) HTN: Yes Hypercholesterolemia: No Liver Disease: No Psychiatric Problems: Yes (anxiety, panic disorder) Seizures: Yes (BRAIN ANEURYSM, INSOMNIA, PTSD) Thyroid Disease: Yes (HYPOTHYROIDISM) Other medical history: SPINAL STENOSIS, RADICULOPATHY - Surgical History Abdominal Surgery: Yes (HYSTERECTOMY BUT HAS BOTH OVARIES) Appendectomy: Yes Cardiac Surgery: No Cholecystectomy: Yes GI Surgery: No Lung Surgery: No Neurologic Surgery: Yes (ANEURYSM CLIP) Orthopedic Surgery: (left knee sx from cysts torn) - Immunization History Td Vaccination: Yes TDAP Vaccination: Yes Immunization Up to Date: Yes - Psycho Social/Smoking Cessation Hx Smoking Status: No Smoking History: Never smoked Years of Tobacco Use: 0 Have you smoked in the past 12 months: No Number of Cigarettes Smoked Daily: 0 Cigars Per Day: 0 Information on smoking cessation initiated: No 'Breaking Loose' booklet given: 02/27/14 Hx Alcohol Use: No Drug/Substance Use Hx: No Substance Use Type: None Hx Substance Use Treatment: No *Physical Exam - Vital Signs Last Vital Signs Temp Pulse Resp BP Pulse Ox 98.6 F 107 H 16 152/101 H 98 02/03/19 17:29 02/03/19 17:29 02/03/19 17:29 02/03/19 17:29 02/03/19 17:29 ED Treatment Course - LABORATORY CBC & Chemistry Diagram: 02/03/19 19:50 02/03/19 19:50 Discharge - Discharge Information Problems reviewed: Yes Clinical Impression/Diagnosis: Neck pain, Viral syndrome Condition: Stable - Admission No - Additional Discharge Information Prescriptions: Nitrofurantoin Monohyd/M-Cryst [Macrobid -] 100 mg PO BID #14 capsule - Follow up/Referral Referrals: Brodie Hernandez MD [Primary Care Provider] - - Patient Discharge Instructions Patient Printed Discharge Instructions: DI for Viral Syndrome Additional Instructions: You were seen in the ER for reports of fever and neck pain You had labwork showed a urinary tract infection but otherwise unremarkable You should follow up with your family doctor within 1 week. You have antibiotics sent to your pharmacy to be taken as prescribed Return to the ED if you have worsening pain, fever or any other concerning symptoms. - Post Discharge Activity
[2019-02-03] MEDS ORDERED: VANCOMYCIN HCL 2,000 MG in DEXTROSE 5%-WATER - 500 ML IVPB ONE (17:51)
[2019-02-03] MEDS ORDERED: VANCOMYCIN HCL 1,500 MG in DEXTROSE 5%-WATER - 500 ML IVPB ONE (17:52)
[2019-02-03] MEDS ORDERED: SODIUM CHLORIDE 1,000 ML IV SCH (18:00)
[2019-02-03] MEDS ORDERED: ACETAMINOPHEN 1000 MG/100 ML VIAL (NON FORMULARY) IVPB ONE (18:31)
[2019-02-03 20:11] LABS: BASO % 0.7 % (0-2.0); EOS % 0.6 % (0-4.5); HEMATOCRIT 40.3 % (32.4-45.2); HEMOGLOBIN 13.9 GM/dL (10.7-15.3); LYMPH % 27.3 % (8-40); MCH 31.5 pg (25.7-33.7); MCHC 34.5 g/dl (32.0-36.0); MEAN CELL VOLUME 91.4 fl (80-96); MEAN PLT VOLUME 8.9 fl (7.5-11.1); MONO % 4.5 % (3.8-10.2); NEUT % 66.9 % (42.8-82.8); PLATELET COUNT 304 K/MM3 (134-434); RBC 4.41 M/mm3 (3.60-5.2); RDW 13.3 % (11.6-15.6); WHITE BLOOD COUNT 7.6 K/mm3 (4.0-10.0)
--- NOTE | 2019-02-03 20:15 | PDOC ---
Attending Attestation - Resident Resident Name: Jovita Duong - ED Attending Attestation I have performed the following: I have examined & evaluated the patient, The case was reviewed & discussed with the resident, I agree w/resident's findings & plan, Exceptions are as noted - HPI HPI: 02/03/19 20:14 48F pmh fibromyalgia, cervical radiculopathy, intracranial aneurysm sent by pcp 2/2 high fevers and neck pain and hives on bilateral lower extremities. Neck pain similar to existing radiculopathy - Physicial Exam PE: 02/04/19 00:45 Agree with exam as documented by resident - Medical Decision Making 02/04/19 00:45 Patient denies taking any antipyretics, afebrile here consider viral syndrome, radiculopathy, less likely invasive bacterial infection , meningitis f/u labs, cxr, ekg re-eval dispo per clnical course +uti only deragement on labs DC home
[2019-02-03 20:23] LABS: INR 1.01 (0.83-1.09); PROTHROMBIN TIME (PATIENT) 11.9 SEC (9.7-13.0)
[2019-02-03 20:26] LABS: ACTIVATED PTT 36.6 SECONDS (25.2-36.5)
[2019-02-03 20:43] LABS: ALK PHOS 90 U/L (45-117); ANION GAP 9 MMOL/L (8-16); BILIRUBIN,TOTAL 0.2 mg/dL (0.2-1); BLOOD UREA NITROGEN 8.8 mg/dL (7-18); CALCIUM 9.4 mg/dL (8.5-10.1); CHLORIDE 107 mmol/L (98-107); CO2 26 mmol/L (21-32); CREATININE 0.9 mg/dL (0.55-1.3); GLUCOSE,RANDOM 106 mg/dL (74-106); POTASSIUM 3.8 mmol/L (3.5-5.1); SGOT/AST 19 U/L (15-37); SGPT/ALT 32 U/L (13-61); SODIUM 142 mmol/L (136-145); TOT PROT 8.5 g/dl (6.4-8.2)
[2019-02-03] MEDS ORDERED: ACETAMINOPHEN INJECTION 100 ML IVPB ONE (22:16)
[2019-02-03 23:17] LABS: EPI CELLS 2.2 /HPF (0-5/HPF); HYALINE CASTS 4 /lpf (0-8); URINE APPEARANCE CLEAR; URINE BACTERIA 21.7 /hpf (NEGATIVE); URINE BILIRUBIN NEGATIVE (NEGATIVE); URINE COLOR YELLOW; URINE GLUCOSE (UA) NEGATIVE (NEGATIVE); URINE KETONE NEGATIVE (NEGATIVE); URINE LEUK ESTERASE 1+ (NEGATIVE); URINE NITRITE NEGATIVE (NEGATIVE); URINE PROTEIN NEGATIVE (NEGATIVE); URINE RBC 1 /hpf (0-4); URINE UROBILINOGEN 0.2 mg/dL (0.2-1.0); URINE WBC 12 /hpf (0-5)
[2019-02-03] MEDS ORDERED: NITROFURANTOIN MACROCRYSTAL 50 MG CAPSULE (FP) PO SCH (23:30)
[2019-02-03] MEDS ORDERED: NITROFURANTOIN MACROCRYSTAL 50 MG CAPSULE (FP) ONE (23:52)
[2019-02-03 23:58] VITALS: BP 148/98; PULSE 96
--- NOTE | 2019-02-04 14:33 | EKG ---
Test Reason : Blood Pressure : / mmHG Vent. Rate : 102 BPM Atrial Rate : 102 BPM P-R Int : 150 ms QRS Dur : 072 ms QT Int : 338 ms P-R-T Axes : 043 039 024 degrees QTc Int : 440 ms POOR DATA QUALITY, INTERPRETATION MAY BE ADVERSELY AFFECTED SINUS TACHYCARDIA POSSIBLE LEFT ATRIAL ENLARGEMENT Confirmed by CAESAR JIMÉNEZ MD ([id number]) on 02/04/2019 2:33:36 PM Referred By: Confirmed By:CAESAR JIMÉNEZ MD
== END 2019-02-04 | disposition home or self-care (01) ==
LOC: JER 17:23
PROC: 3E033NZ Introduction of Analgesics, Hypnotics, Sedatives into Peripheral Vein, Percutaneous Approach (ICD-10-PCS; principal; 2019-02-03)
DX: B34.9 Viral infection, unspecified (principal); N39.0 Urinary tract infection, site not specified; I10 Essential (primary) hypertension; E03.9 Hypothyroidism, unspecified; G40.909 Epilepsy, unspecified, not intractable, without status epilepticus; M54.12 Radiculopathy, cervical region; Z87.19 Personal history of other diseases of the digestive system; Z86.59 Personal history of other mental and behavioral disorders; Z90.710 Acquired absence of both cervix and uterus; Z88.0 Allergy status to penicillin; Z88.6 Allergy status to analgesic agent; Z88.8 Allergy status to other drugs, medicaments and biological substances
CPT/HCPCS: 36415; 71045-TC-FY; 80053; 81003; 83605; 84484; 85025; 85610; 85730; 87040; 87086; 87804; 93005; 93010; 99283-25; J0131; J7030

== ENCOUNTER 2022-08-15 10:01 | Day surgery (SDC) | payer OTHER ==
[2022-08-13 15:28] VITALS: BMI 28.1
[2022-08-15 11:38] VITALS: RESP 18; TEMP 97.6
[2022-08-15 11:48] VITALS: BP 124/80; PULSE 70
== END 2022-08-15 12:21 | disposition home or self-care (01) ==
LOC: FASU-ENDO 10:01
PROVIDERS: ATTEND Internal Medicine Gastroenterology
PROC: 0DB78ZX Excision of Stomach, Pylorus, Via Natural or Artificial Opening Endoscopic, Diagnostic (ICD-10-PCS; 2022-08-15)
PROC: 0DB48ZX Excision of Esophagogastric Junction, Via Natural or Artificial Opening Endoscopic, Diagnostic (ICD-10-PCS; 2022-08-15)
PROC: 0DB98ZX Excision of Duodenum, Via Natural or Artificial Opening Endoscopic, Diagnostic (ICD-10-PCS; principal; 2022-08-15 11:22)
DX: K21.00 Gastro-esophageal reflux disease with esophagitis, without bleeding (principal); K29.70 Gastritis, unspecified, without bleeding
CPT/HCPCS: 88305-TC; 88342-TC